=== PATIENT | male | born 1945 | race African-American/Black ===

== ENCOUNTER 2019-05-17 12:26 | Emergency (ER) | payer OTHER ==
[~2019-05-17] VITALS: Ht 180.3 cm; Wt 65.8 kg
[2019-05-17 15:29] VITALS: BP 141/73
== END 2019-05-17 15:41 | disposition home or self-care (01) ==
LOC: ER 12:26
DX: S16.1XXA Strain of muscle, fascia and tendon at neck level, initial encounter (principal); S09.90XA Unspecified injury of head, initial encounter; M48.00 Spinal stenosis, site unspecified; W20.1XXA Struck by object due to collapse of building, initial encounter; Y93.89 Activity, other specified; Y92.128 Other place in nursing home as the place of occurrence of the external cause; Y99.8 Other external cause status